=== PATIENT | male | born 1995 | race Two or more races ===

== ENCOUNTER 2023-12-29 18:54 | Outpatient (CLI) | payer OTHER, SELFPAY | END 2023-12-29 18:55 | disposition home or self-care (01) | LOC: AMB 01-07 16:10 | PROVIDERS: Visit Provider Emergency Medicine | DX: T68.XXXA Hypothermia, initial encounter (principal); X31.XXXA Exposure to excessive natural cold, initial encounter; Y92.89 Other specified places as the place of occurrence of the external cause | CPT/HCPCS: A0998 ==

== ENCOUNTER 2024-02-23 21:32 | Outpatient (CLI) | payer OTHER, SELFPAY | END 2024-02-23 21:33 | disposition home or self-care (01) | LOC: AMB 02-27 10:44 | PROVIDERS: Visit Provider Emergency Medicine | DX: M79.641 Pain in right hand (principal); M79.642 Pain in left hand; T69.8XXA Other specified effects of reduced temperature, initial encounter | CPT/HCPCS: A0998 ==